=== PATIENT | male | born 1965 | race Caucasian/White ===

== ENCOUNTER → 2017-07-17 | Outpatient (CLI) | payer OTHER | END | disposition home or self-care (01) | LOC: KCIC MRI 15:47 | DX: M50.123 Cervical disc disorder at C6-C7 level with radiculopathy (principal); M47.22 Other spondylosis with radiculopathy, cervical region; M25.78 Osteophyte, vertebrae; M48.02 Spinal stenosis, cervical region; I10 Essential (primary) hypertension | CPT/HCPCS: 72141 ==

== ENCOUNTER → 2020-06-16 | Outpatient (CLI) | payer BC ==
[2016-02-14 10:00] VITALS: BP 111/74
[~2020-06-16] MED LIST: ADAL40PE SQ; AMLO2.5T2 PO; ATOR20TA PO; BUTA1CAP29 PO; CHOL500016 PO; FOLI1TAB16 PO; LISI20TA18 PO; METH-38 PO; MULT-404 PO; NABU750T7 PO; OMEP20TA8 PO; TRAM50TA PO; ZOLP5TAB PO
--- NOTE | 2020-06-16 16:40 | KCIC ---
EXAM: 1. CERVICAL SPINE 3 VIEWS. 2. THORACIC SPINE 3 VIEWS. 3. LUMBAR SPINE 3 VIEWS. HISTORY: Ankylosing spondylitis COMPARISON: None. FINDINGS: There are anterior cervical discectomy and fusion changes at C6-7. There is 4 mm anterolist hesis at C7-T1. There is likely anterior ankylosis at C2-3. There is mild degenerative disc disease a t C7-T1. There is no prevertebral soft tissue swelling. No fractures are identified. There is a minimal lower lumbar levoscoliosis. No fractures are identified. There is no clear ankylos is. There is mild mid thoracic degenerative disc disease. There is a mild lumbar dextroscoliosis. No fractures are identified. There is no ankylosis. Endplate remodeling indicates mild degenerative disc disease from L2 through L5. Disc heights are grossly main tained. Facet osteoarthritis is moderate from L4 through S1. 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 Cerclage wires project along the iliac wings and francis ble, incompletely visualized. IMPRESSION: 1. C6-C7 anterior cervical discectomy and fusion. 2. 4 mm anterolisthesis at C7-T1. Correlate to ensure stability. 3. 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 There also may be anterior ankylosis at C2-3. No cl ear ankylosis is appreciated elsewhere. Electronically signed by: Braulio Lowery MD (06/16/2020 4:37 PM) [facility]
== END ==
LOC: KCIC 08:19
PROVIDERS: ATTEND Internal Medicine Rheumatology
DX: M51.37 Other intervertebral disc degeneration, lumbosacral region (principal); M43.13 Spondylolisthesis, cervicothoracic region; M43.22 Fusion of spine, cervical region; M45.9 Ankylosing spondylitis of unspecified sites in spine; Z79.899 Other long term (current) drug therapy
CPT/HCPCS: 72040; 72072; 72100